=== PATIENT | male | born 1950 | race Caucasian/White ===

== ENCOUNTER 2016-06-27 14:22 | Emergency (ER) | payer MEDICAID, OTHER ==
[~2016-06-27] VITALS: Ht 172.7 cm; Wt 90.0 kg
[2016-06-27 14:30] VITALS: Ht 172.7 cm; Wt 90.0 kg
[2016-06-27] MEDS ORDERED: OXYCODONE/ACETAMINOPHEN (5/325) TAB PO ONE (14:30)
[2016-06-27] MEDS ORDERED: KETOROLAC 30 MG INJ IM STA (14:30)
[2016-06-27] MEDS ORDERED: FINA5TAB4 PO (14:42)
[2016-06-27] MEDS ORDERED: TERA5CAP3 PO (14:42)
[2016-06-27] MEDS ORDERED: TAMS0.4C2 PO (14:43)
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
[2016-06-27] MEDS ORDERED: ONDANSETRON 4 MG INJ IV STA (15:52)
[2016-06-27] MEDS ORDERED: SOD CHLORIDE 0.9% 1,000 ML IV STA (15:52)
[2016-06-27] MEDS ORDERED: morphine 4 MG/ML VIAL IV STA (15:52)
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
[2016-06-27 16:14] LABS: BASOPHILS % 0.5 % (0.0-2.0); EOSINOPHILS # 0.1 10^3/ul (0.0-0.5); EOSINOPHILS % 0.9 % (0.0-7.0); HEMATOCRIT 40.9 % (42.0-52.0); HEMOGLOBIN 13.8 g/dl (14.0-18.0); LYMPHOCYTES # 1.3 10^3/ul (0.8-2.9); LYMPHOCYTES % 17.4 % (15.0-51.0); MEAN CORPUSCULAR HEMOGLOBIN 31.2 pg (29.0-33.0); MEAN CORPUSCULAR HGB CONC 33.7 g/dl (32.0-37.0); MEAN CORPUSCULAR VOLUME 92.6 fl (82.0-101.0); MEAN PLATELET VOLUME 8.7 fl (7.4-10.4); MONOCYTE # 0.4 10^3/ul (0.3-0.9); MONOCYTES % 5.6 % (0.0-11.0); NEUTROPHIL # 5.6 10^3/ul (1.6-7.5); NEUTROPHILS % 75.6 % (39.0-77.0); PLATELET COUNT 202 10^3/UL (140-440); RED BLOOD COUNT 4.42 10^6/ul (4.70-6.10); RED CELL DISTRIBUTION WIDTH 12.9 % (11.5-14.5); UNCORRECTED WBC 7.4 10^3/ul (4.8-10.8); WHITE BLOOD COUNT 7.4 10^3/ul (4.8-10.8)
[2016-06-27 16:16] LABS: CONDITION 1
[2016-06-27 16:24] LABS: CHLORIDE 106 mmol/L (97-110)
[2016-06-27 16:25] LABS: POTASSIUM 4.3 mmol/L (3.5-5.1); SODIUM 144 mmol/L (135-144)
[2016-06-27 16:27] LABS: ANION GAP 15 (8-16); ASPARTATE AMINO TRANSFERASE 37 IU/L (15-46); BILIRUBIN,INDIRECT 0.4 mg/dl (0-1.1); BILIRUBIN,TOTAL 0.4 mg/dl (0.2-1.3); CARBON DIOXIDE 27 mmol/L (21-31); CREATININE 0.84 mg/dl (0.61-1.24); INR 1.21; PROTIME 15.4 Sec (12.2-14.2); PT RATIO 1.2
[2016-06-27 16:28] LABS: ALANINE AMINOTRANSFERASE 34 IU/L (13-69); ALBUMIN/GLOBULIN RATIO 1.14; ALKALINE PHOSPHATASE 90 IU/L (42-121); BLOOD UREA NITROGEN 9 mg/dl (7-20); CALCIUM 8.5 mg/dl (8.4-10.2); GLUCOSE 94 mg/dl (70-220); TOTAL PROTEIN 7.5 g/dl (6.1-8.1)
[2016-06-27 16:45] LABS: TROPONIN-I < 0.012 ng/ml (0.00-0.12)
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
[2016-06-27] MEDS ORDERED: OXYC-279 PO (18:25)
[2016-06-27] MEDS ORDERED: IBUP-1542 PO (18:25)
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
[2016-06-27 18:59] VITALS: BP 155/80; PULSE 68; RESP 18; TEMP 98.1
== END 2016-06-27 19:02 | disposition home or self-care (01) ==
LOC: E/R 14:22
DX: S82.831A Other fracture of upper and lower end of right fibula, initial encounter for closed fracture (principal); S63.91XA Sprain of unspecified part of right wrist and hand, initial encounter; S93.491A Sprain of other ligament of right ankle, initial encounter; R07.9 Chest pain, unspecified; V23.4XXA Motorcycle driver injured in collision with car, pick-up truck or van in traffic accident, initial encounter
CPT/HCPCS: 27840; 70450; 71010; 72125; 73110; 73510; 73562; 73610; 73700; 80053; 83690; 84484; 85025; 85610; 93005; J1885; J2270; J2405; J7030; 36415; 96372; 96374; 96375